=== PATIENT | female | born 1950 | race Caucasian/White ===

== ENCOUNTER 2016-03-08 08:41 | Emergency (ER) | payer OTHER ==
[~2016-03-08] VITALS: Ht 152.4 cm; Wt 107.1 kg
[~2016-03-08 08:41] MED LIST: ASPIRIN325 MG PO; BACITRACIN3.5 GM BOTH EYES; BENADRYL25 MG PO; CATAPRES0.2 MG PO; CENTRUM SILVER1 EAC4 PO; COMBIVENT RESPIM4 GM IH; CRESTOR20 MG PO; CYMBALTA60 MG PO; Catapres PO; Cymbalta PO; DILAUDID2 MG PO; Dilaudid PO; ELIQUIS5 MG PO; FLEXERIL10 MG PO; FLONASE16 G1 BOTH NARES; FORTAMET1000 M1 PO; FOSAMAX70 MG PO; KLOR-CON M1010 MEQ PO; LASIX40 MG PO; LISINOPRIL10 MG PO; LYRICA200 MG PO; Lasix PO; MATZIM LA360 MG PO; MATZIM PO; MELATONIN10 M2 PO; METFORMIN HCL1000 MG PO; MIRAPEX0.25 MG PO; MOBIC7.5 MG PO; Micro-K,K-Tab,K-Dur, PO; Mirapex PO; NORVASC10 MG PO; NYSTOP60 GM TP; Norvasc PO; PRAVASTATIN SOD80 MG PO; PRILOSEC20 MG PO; PROAIR HFA8.5 GM IH; Pravachol PO; PriLOSEC PO; SINGULAIR10 MG PO; Singulair PO; XANAX0.5 MG PO
[2016-03-08 11:24] VITALS: BP 139/84
== END 2016-03-08 11:25 | disposition home or self-care (01) ==
LOC: EME → EDBD 08:41 → EME 11:25
DX: R06.02 Shortness of breath (principal); S81.801D Unspecified open wound, right lower leg, subsequent encounter; X58.XXXD Exposure to other specified factors, subsequent encounter; I10 Essential (primary) hypertension; E78.5 Hyperlipidemia, unspecified; E11.9 Type 2 diabetes mellitus without complications; J45.909 Unspecified asthma, uncomplicated; G89.29 Other chronic pain; Z79.891 Long term (current) use of opiate analgesic
CPT/HCPCS: 71010; 99281; 99284

== ENCOUNTER 2016-04-27 13:09 | Inpatient (IN) | payer OTHER ==
[~2016-04-27] VITALS: Ht 152.4 cm; Wt 104.0 kg
[2016-04-27 13:17] LABS: BASE EXCESS 7.9 mEq/L (-3 to +3); BICARBONATE 34.8 mEq/L (22-26); CARBOXY HGB 4.3 % (0-5); METHEMOGLOBIN 0.2 % (0-1.5); PCO2 66 mm Hg (35-45); PO2 129 mm Hg (80-100); pH 7.33 (7.35-7.45)
[2016-04-27 13:18] LABS: COMMENTS - BLOOD GASES NEG A+C+; DEVICE NRBR; FI02 100 %; O2 FLOW 15 L/MIN; SITE LR; TOTAL RESP RATE 10 resp/min
[2016-04-27 13:46] LABS: CHLORIDE 107 mEq/L (99-109); POTASSIUM 4.1 mEq/L (3.7-5.4); SODIUM 145 mEq/L (136-147)
[2016-04-27 13:48] LABS: GLUCOSE 129 mg/dL (70-99)
[2016-04-27 13:49] LABS: ANION GAP 10 MEQ/L (2-14); INTER. NORMALIZED RATIO 1.2
[2016-04-27 13:52] LABS: GFR ESTIMATE (CALCULATED) 53 mL/min/; UREA NITROGEN (BUN) 24 mg/dL (9-23)
[2016-04-27 13:57] LABS: TROP-I INTERPRETATION NEGATIVE; TROPONIN-I 0.02 ng/mL (0.0-0.30)
[2016-04-27 14:21] LABS: HEMATOCRIT 28.4 % (36.0-46.0); MCH 18.8 PG (29.0-34.0); MCHC 26.4 G/DL (30.0-36.0); MCV 71.4 FL (83-99); RBC DIS.WIDTH-CV 21.8 % (11.8-14.6); RBC DIS.WIDTH-SD 52.9 % (39-53); RED BLOOD COUNT 3.98 M/uL (3.80-5.20); WHITE BLOOD COUNT 15.2 K/uL (4.1-10.2)
[2016-04-27 15:40] LABS: BASOPHIL COUNT 0.1 K/uL (0-0.1); EOSINOPHIL (%) 0.2 % (0-5); HEMATOLOGY COMMENT 1 SMEAR COMPATIBLE; IMMATURE GRANULOCYTE (%) 0.8 % (0.0-0.7); IMMATURE GRANULOCYTE COUNT 1.2 K/uL; LYMPHOCYTE COUNT 0.9 K/uL (1.0-2.8); MEAN PLAT.VOLUME 11.2 uM^3 (9.5-12.4); MONOCYTE (%) 5.5 % (3-12); MONOCYTE COUNT 0.8 K/uL (0-0.8); NEUTROPHIL (%) 86.9 % (45-76); NEUTROPHIL COUNT 13.2 K/uL (1.8-6.4); PLAT.SUFFICIENCY INCREASED; PLATELET COUNT 385 K/uL (156-360); USER ID SS
[2016-04-27 15:44] LABS: BASE EXCESS 5.4 mEq/L (-3 to +3); BICARBONATE 31.8 mEq/L (22-26); CARBOXY HGB 2.6 % (0-5); METHEMOGLOBIN 0 % (0-1.5); PO2 112 mm Hg (80-100); pH 7.34 (7.35-7.45)
[2016-04-27 15:46] LABS: COMMENTS - BLOOD GASES NEG A+C+; PCO2 59 mm Hg (35-45); SITE LR
[2016-04-27 15:47] LABS: DEVICE VENT; FI02 100 %; MECHANICAL RATE 16 resp/min; MODE AC; O2 FLOW 50 L/MIN; PEEP 8 CM/H20; TIDAL VOLUME 450 ML; TOTAL RESP RATE 20 resp/min
[2016-04-27] MEDS ORDERED: LISINOPRIL30 MG PO (16:31)
[2016-04-27] MEDS ORDERED: OMEPRAZOLE40 M1 PO (16:34)
[2016-04-27] MEDS ORDERED: K-DUR20 MEQ PO ×3 (16:41→16:42)
[2016-04-27] MEDS ORDERED: FISH OIL 1,0001 EAC7 PO (16:43)
[2016-04-27 20:15] VITALS: BP 152/76
[2016-04-27 20:16] VITALS: BP 152/76
[2016-04-27 21:00] VITALS: BP 131/58
[2016-04-27 21:47] LABS: METH RESISTANT S AUREUS PCR NEGATIVE (NEGATIVE)
[2016-04-27 21:58] LABS: CHLORIDE 108 mEq/L (99-109); POTASSIUM 3.9 mEq/L (3.7-5.4); SODIUM 147 mEq/L (136-147)
[2016-04-27 21:59] LABS: PROBE CHECK PASS; SPECIMEN PROCESSING CONTROL PASS
[2016-04-27 22:00] VITALS: BP 123/78
[2016-04-27 22:00] LABS: GLUCOSE 173 mg/dL (70-99)
[2016-04-27 22:02] LABS: ANION GAP 12 MEQ/L (2-14); TOTAL BILIRUBIN 0.2 mg/dL (0.0-1.0)
[2016-04-27 22:04] LABS: ALKALINE PHOSPHATASE 81 IU/L (3-129); GFR ESTIMATE (CALCULATED) 43 mL/min/
[2016-04-27 22:05] LABS: UREA NITROGEN (BUN) 25 mg/dL (9-23)
[2016-04-27 22:23] LABS: ADD MIUA? YES; BILIRUBIN NEGATIVE; BLOOD SMALL; COLOR YELLOW ((YELLOW)); GLUCOSE (STRIP) NEGATIVE; KETONES NEGATIVE; LEUKOCYTES SMALL; NITRITE NEGATIVE; PROTEIN (STRIP) 30; SPECIFIC GRAVITY 1.014 (1.000-1.030); UROBILINOGEN 0.2 MG/DL (0.2-1.0)
[2016-04-27 22:30] LABS: AMPHETAMINES QUANT VALUE 0 NG/ML; BARBITUATES QUANT VALUE 0 NG/ML; BENZODIAZEPINES, URINE SCREEN POSITIVE (200 ng/mL); MARIJUANA QUANT VALUE 0 NG/ML; PHENCYCLIDINE QUANT VALUE 0 NG/ML
[2016-04-27 23:00] VITALS: BP 122/69
[2016-04-27 23:03] LABS: BACTERIA RARE /HPF; EPITHELIAL CELLS NONE SEEN /HPF; MUCUS 1+ /LPF; UCUL ADDED? NO
[2016-04-28] VITALS (30 sets, daily range): BP systolic 60–170; BP diastolic 38–108
[2016-04-28 00:59] LABS: HEMATOCRIT 26.1 % (36.0-46.0); MCH 18.8 PG (29.0-34.0); MCHC 26.4 G/DL (30.0-36.0); MCV 71.1 FL (83-99); RBC DIS.WIDTH-CV 21.3 % (11.8-14.6); RBC DIS.WIDTH-SD 51.8 % (39-53); RED BLOOD COUNT 3.67 M/uL (3.80-5.20); WHITE BLOOD COUNT 17.8 K/uL (4.1-10.2)
[2016-04-28 01:28] LABS: MEAN PLAT.VOLUME 11.6 uM^3 (9.5-12.4); PLATELET COUNT 274 K/uL (156-360)
[2016-04-28 04:26] LABS: LACTATE DEHYDROGENASE 384 IU/L (20-246)
[2016-04-28 06:08] LABS: ALKALINE PHOSPHATASE 66 IU/L (3-129); ANION GAP 9 MEQ/L (2-14); CHLORIDE 108 MEQ/L (99-109); GFR ESTIMATE (CALCULATED) 53 mL/min/; GLUCOSE 135 mg/dL (70-99); POTASSIUM 3.8 MEQ/L (3.7-5.4); SAMPLE HEMOLYSIS CHECK 0; SAMPLE ICTERIC CHECK 0; SAMPLE LIPEMIA CHECK 0; SODIUM 146 MEQ/L (136-147); TOTAL BILIRUBIN 0.5 MG/DL (0.0-1.0); UREA NITROGEN (BUN) 23 mg/dL (9-23)
[2016-04-28 06:27] LABS: INTER. NORMALIZED RATIO 1.1; PROTHROMBIN TIME 11.4 (9.2-11.2); PTT 23.3 (25-32)
[2016-04-28 06:35] LABS: POINT-OF-CARE METER ID UU14174217
[2016-04-28 07:25] LABS: INTERNAL CONTROL VALID? YES
[2016-04-28 09:03] LABS: HEMATOCRIT 29.7 % (36.0-46.0); MCH 19.8 PG (29.0-34.0); MCHC 27.3 G/DL (30.0-36.0); MCV 72.4 FL (83-99); RBC DIS.WIDTH-CV 20.7 % (11.8-14.6); WHITE BLOOD COUNT 18.3 K/uL (4.1-10.2)
[2016-04-28 09:16] LABS: PLATELET COUNT 265 K/uL (156-360)
[2016-04-28 10:08] LABS: POINT-OF-CARE METER ID UU13113748
[2016-04-28 12:12] LABS: HEMATOCRIT 28.2 % (36.0-46.0); MCV 72.3 FL (83-99)
[2016-04-28 12:43] LABS: IRON 17 MCG/DL (35-150)
[2016-04-28 12:55] LABS: FERRITIN 16 NG/ML (10-291)
[2016-04-28 15:23] LABS: BASE EXCESS 9.2 mEq/L (-3 to +3); BICARBONATE 33.5 mEq/L (22-26); CARBOXY HGB 1.8 % (0-5); METHEMOGLOBIN 0.6 % (0-1.5)
[2016-04-28 15:24] LABS: COMMENTS - BLOOD GASES A+C+; CONTINUOUS POS AIRWAY PRESSURE 8 cm H2O; DEVICE 980; FI02 30 %; MODE NIPPV; PCO2 44 mm Hg (35-45); PO2 71 mm Hg (80-100); PRES. SUPPORT 15 CM/H2O; SITE LR; TOTAL RESP RATE 22 resp/min; pH 7.49 (7.35-7.45)
[2016-04-28 15:41] LABS: POINT-OF-CARE METER ID UU13113748
[2016-04-28 18:06] LABS: POINT-OF-CARE METER ID UU14174217
[2016-04-28 23:07] LABS: POINT-OF-CARE METER ID UU13113748
[2016-04-29] VITALS (21 sets, daily range): BP systolic 134–187; BP diastolic 68–123
[2016-04-29 06:23] LABS: POINT-OF-CARE METER ID UU14174217
[2016-04-29 07:06] LABS: EOSINOPHIL (%) 0 % (0-5); HEMATOCRIT 31.3 % (36.0-46.0); IMMATURE GRANULOCYTE (%) 1.9 % (0.0-0.7); IMMATURE GRANULOCYTE COUNT 0.2 K/uL; INSTRUMENT ABS NEUTROPHIL CT 11.7 K/uL; LYMPHOCYTE COUNT 0.2 K/uL (1.0-2.8); MCH 20.1 PG (29.0-34.0); MCHC 27.2 G/DL (30.0-36.0); MCV 74.2 FL (83-99); MEAN PLAT.VOLUME 11.1 uM^3 (9.5-12.4); MONOCYTE (%) 2.3 % (3-12); MONOCYTE COUNT 0.3 K/uL (0-0.8); NEUTROPHIL (%) 93.8 % (45-76); NEUTROPHIL COUNT 11.7 K/uL (1.8-6.4); NRBC (%) 0.3 /100 WBC (0-0); PLATELET COUNT 240 K/uL (156-360); RBC DIS.WIDTH-CV 21.3 % (11.8-14.6); RED BLOOD COUNT 4.22 M/uL (3.80-5.20)
[2016-04-29 07:11] LABS: WHITE BLOOD COUNT 12.5 K/uL (4.1-10.2)
[2016-04-29 07:33] LABS: ANION GAP 11 MEQ/L (2-14); CHLORIDE 108 MEQ/L (99-109); GFR ESTIMATE (CALCULATED) 59 mL/min/; GLUCOSE 124 mg/dL (70-99); MAGNESIUM 2.4 mg/dl (1.3-2.7); SAMPLE HEMOLYSIS CHECK 0; SAMPLE ICTERIC CHECK 0; SAMPLE LIPEMIA CHECK 0; SODIUM 151 MEQ/L (136-147); UREA NITROGEN (BUN) 25 mg/dL (9-23)
[2016-04-29 10:55] LABS: POINT-OF-CARE METER ID UU13113731
[2016-04-29 11:14] LABS: ABS NEUTROPHIL COUNT 12.2; BAND NEUTROPHILS 1.7 % (0-8.0); EOSINOPHIL ABS CT 0; METAMYELOCYTES 0.9 %; SEG.NEUTROPHILS 95.7 % (46.0-76.0); SMUDGE CELLS 1.7
[2016-04-29 11:49] LABS: PLAT.SUFFICIENCY ADEQUATE
[2016-04-29 17:50] LABS: POINT-OF-CARE METER ID UU14174217
[2016-04-30] VITALS (13 sets, daily range): BP systolic 147–199; BP diastolic 72–112
[2016-04-30 17:01] LABS: POINT-OF-CARE METER ID UU14162508
[2016-04-30 22:41] LABS: POINT-OF-CARE METER ID UU14162508
[2016-05-01 04:48] VITALS: BP 179/88
[2016-05-01 06:26] LABS: POINT-OF-CARE METER ID UU14162508
[2016-05-01 07:41] LABS: HEMATOCRIT 34.6 % (36.0-46.0); MCH 20.4 PG (29.0-34.0); MCHC 26.9 G/DL (30.0-36.0); MEAN PLAT.VOLUME 11.5 uM^3 (9.5-12.4); NRBC (%) 0.6 /100 WBC (0-0); PLATELET COUNT 303 K/uL (156-360); RBC DIS.WIDTH-SD 58.4 % (39-53); RED BLOOD COUNT 4.55 M/uL (3.80-5.20); WHITE BLOOD COUNT 16.2 K/uL (4.1-10.2)
[2016-05-01 07:43] LABS: HEMATOCRIT 34.3 % (36.0-46.0); MCH 19.9 PG (29.0-34.0); MCHC 26.2 G/DL (30.0-36.0); MCV 75.9 FL (83-99); NRBC (%) 0.4 /100 WBC (0-0); RBC DIS.WIDTH-CV 22.2 % (11.8-14.6); RBC DIS.WIDTH-SD 58.6 % (39-53); RED BLOOD COUNT 4.52 M/uL (3.80-5.20); WHITE BLOOD COUNT 15.9 K/uL (4.1-10.2)
[2016-05-01 07:55] VITALS: BP 162/78
[2016-05-01 07:58] LABS: ANION GAP 9 MEQ/L (2-14); CHLORIDE 105 MEQ/L (99-109); GFR ESTIMATE (CALCULATED) > 59 mL/min/; GLUCOSE 139 mg/dL (70-99); MAGNESIUM 2.4 mg/dl (1.3-2.7); POTASSIUM 2.9 MEQ/L (3.7-5.4); SAMPLE HEMOLYSIS CHECK 0; SAMPLE ICTERIC CHECK 0; SAMPLE LIPEMIA CHECK 0; SODIUM 149 MEQ/L (136-147); UREA NITROGEN (BUN) 30 mg/dL (9-23)
[2016-05-01 10:13] LABS: ABS NEUTROPHIL COUNT 15.3; ANISOCYTOSIS 2+; BAND NEUTROPHILS 2.6 % (0-8.0); EOSINOPHIL ABS CT 0; HYPOCHROMASIA 2+; MEAN PLAT.VOLUME 11.5 uM^3 (9.5-12.4); MICROCYTOSIS 2+; OVALOCYTES 1+; PLAT.SUFFICIENCY ADEQUATE; PLATELET COUNT 295 K/uL (156-360); POIKILOCYTOSIS 2+; POLYCHROMASIA 1+; SEG.NEUTROPHILS 93.9 % (46.0-76.0)
[2016-05-01 11:40] VITALS: BP 177/96
[2016-05-01 11:53] LABS: POINT-OF-CARE METER ID UU14162508
[2016-05-01 15:10] VITALS: BP 154/94
[2016-05-01 16:53] LABS: POINT-OF-CARE METER ID UU14162508
[2016-05-01 21:43] LABS: POINT-OF-CARE METER ID UU14162508
[2016-05-01 23:08] VITALS: BP 156/58
[2016-05-02 03:24] VITALS: BP 148/56
[2016-05-02 07:18] LABS: HEMATOCRIT 35.4 % (36.0-46.0); MCH 20.5 PG (29.0-34.0); MCHC 26.8 G/DL (30.0-36.0); MCV 76.3 FL (83-99); NRBC (%) 0.3 /100 WBC (0-0); RBC DIS.WIDTH-CV 22.8 % (11.8-14.6); RBC DIS.WIDTH-SD 59.7 % (39-53); RED BLOOD COUNT 4.64 M/uL (3.80-5.20); WHITE BLOOD COUNT 17.5 K/uL (4.1-10.2)
[2016-05-02 07:40] VITALS: BP 194/102
[2016-05-02 08:22] LABS: ANION GAP 8 MEQ/L (2-14); CHLORIDE 104 MEQ/L (99-109); GFR ESTIMATE (CALCULATED) > 59 mL/min/; GLUCOSE 162 mg/dL (70-99); MAGNESIUM 2.4 mg/dl (1.3-2.7); SAMPLE HEMOLYSIS CHECK 1; SAMPLE ICTERIC CHECK 0; SAMPLE LIPEMIA CHECK 0; SODIUM 146 MEQ/L (136-147); UREA NITROGEN (BUN) 29 mg/dL (9-23)
[2016-05-02 08:28] LABS: POTASSIUM 4.1 MEQ/L (3.7-5.4)
[2016-05-02 09:40] VITALS: BP 194/112
[2016-05-02 11:01] LABS: EOSINOPHIL ABS CT 0; INSTRUMENT ABS NEUTROPHIL CT 15.4 K/uL; MACROCYTES 1+; MEAN PLAT.VOLUME 11.2 uM^3 (9.5-12.4); OVALOCYTES 1+; PLAT.SUFFICIENCY ADEQUATE; PLATELET COUNT 273 K/uL (156-360)
[2016-05-02 11:45] VITALS: BP 188/112
[2016-05-02 11:55] LABS: POINT-OF-CARE METER ID UU14162508
[2016-05-02 12:05] LABS: D-DIMER ELISA 0.73 mg/L FEU (< 0.57)
[2016-05-02 13:26] LABS: ANTI-NUCLEAR AB SCRN/RFLX(ANA) NONREACTIVE (NONREACTIVE); SCL-70 (SCLERODERMA) ANTIBODY 17 U/mL (0-99)
[2016-05-02 15:45] VITALS: BP 152/88
[2016-05-02 20:00] VITALS: BP 140/100
[2016-05-02 21:24] LABS: POINT-OF-CARE METER ID UU14162508
[2016-05-03] VITALS (7 sets, daily range): BP systolic 128–188; BP diastolic 63–108
[2016-05-03 06:53] LABS: POINT-OF-CARE METER ID UU14162508
[2016-05-03 09:20] LABS: ALKALINE PHOSPHATASE 82 IU/L (3-129); ANION GAP 8 MEQ/L (2-14); CHLORIDE 96 MEQ/L (99-109); GFR ESTIMATE (CALCULATED) > 59 mL/min/; GLUCOSE 160 mg/dL (70-99); MAGNESIUM 2.3 mg/dl (1.3-2.7); SAMPLE HEMOLYSIS CHECK 2; SAMPLE ICTERIC CHECK 0; SAMPLE LIPEMIA CHECK 0; SODIUM 141 MEQ/L (136-147); TOTAL BILIRUBIN 0.6 MG/DL (0.0-1.0); UREA NITROGEN (BUN) 30 mg/dL (9-23)
[2016-05-03 09:24] LABS: POTASSIUM 4.1 MEQ/L (3.7-5.4)
[2016-05-03 09:28] LABS: MCH 20.2 PG (29.0-34.0); MCHC 26.8 G/DL (30.0-36.0); MCV 75.4 FL (83-99); NRBC (%) 0.3 /100 WBC (0-0); RBC DIS.WIDTH-SD 56.8 % (39-53); RED BLOOD COUNT 5.04 M/uL (3.80-5.20); WHITE BLOOD COUNT 17.1 K/uL (4.1-10.2)
[2016-05-03 10:26] LABS: ABS NEUTROPHIL COUNT 16.3; ANISOCYTOSIS 2+; BAND NEUTROPHILS 1.7 % (0-8.0); EOSINOPHIL ABS CT 0; HYPOCHROMASIA 1+; INSTRUMENT ABS NEUTROPHIL CT 15.3 K/uL; LYMPHOCYTES 1.8 % (15.0-45.0); MACROCYTES 1+; MEAN PLAT.VOLUME 11.6 uM^3 (9.5-12.4); MICROCYTOSIS 3+; MYELOCYTES 1.7 %; OVALOCYTES 1+; PLAT.SUFFICIENCY ADEQUATE; PLATELET COUNT 354 K/uL (156-360); POIKILOCYTOSIS 1+; POLYCHROMASIA 1+; SEG.NEUTROPHILS 93.9 % (46.0-76.0); SMUDGE CELLS 0.9
[2016-05-03 11:53] LABS: POINT-OF-CARE METER ID UU14162508
[2016-05-03 13:12] LABS: INTACT PARATHYROID HORMONE 218 pg/mL (10-69)
[2016-05-03 16:15] LABS: POINT-OF-CARE METER ID UU14162508
[2016-05-04 03:43] VITALS: BP 151/102
[2016-05-04 08:29] LABS: BASOPHIL COUNT 0.1 K/uL (0-0.1); EOSINOPHIL (%) 0.1 % (0-5); HEMATOCRIT 39.7 % (36.0-46.0); IMMATURE GRANULOCYTE (%) 4.3 % (0.0-0.7); IMMATURE GRANULOCYTE COUNT 0.9 K/uL; INSTRUMENT ABS NEUTROPHIL CT 18.1 K/uL; LYMPHOCYTE COUNT 0.9 K/uL (1.0-2.8); MCH 20.7 PG (29.0-34.0); MCHC 27.7 G/DL (30.0-36.0); MCV 74.6 FL (83-99); MONOCYTE (%) 5.1 % (3-12); MONOCYTE COUNT 1.1 K/uL (0-0.8); NEUTROPHIL COUNT 18.1 K/uL (1.8-6.4); NRBC (%) 0.2 /100 WBC (0-0); RBC DIS.WIDTH-CV 23.5 % (11.8-14.6); RBC DIS.WIDTH-SD 56.8 % (39-53); RED BLOOD COUNT 5.32 M/uL (3.80-5.20)
[2016-05-04 08:41] VITALS: BP 174/90
[2016-05-04 08:47] LABS: ALKALINE PHOSPHATASE 83 IU/L (3-129); ANION GAP 10 MEQ/L (2-14); CHLORIDE 97 MEQ/L (99-109); GFR ESTIMATE (CALCULATED) > 59 mL/min/; MAGNESIUM 2.3 mg/dl (1.3-2.7); POTASSIUM 3.3 MEQ/L (3.7-5.4); SAMPLE HEMOLYSIS CHECK 0; SAMPLE ICTERIC CHECK 0; SAMPLE LIPEMIA CHECK 0; SODIUM 144 MEQ/L (136-147); TOTAL BILIRUBIN 0.5 MG/DL (0.0-1.0); UREA NITROGEN (BUN) 30 mg/dL (9-23)
[2016-05-04 08:50] LABS: GLUCOSE 91 mg/dL (70-99)
[2016-05-04 11:54] VITALS: BP 131/83
[2016-05-04 12:32] LABS: PLATELET CLUMPS PRESENT - PLATELET COUNT APPEARS ADQ.; PLATELET COUNT UNABLE TO REPORT K/uL (156-360)
[2016-05-04] MEDS ORDERED: LOPRESSOR25 MG PO (13:17)
[2016-05-04] MEDS ORDERED: HYDROCHLOROTHIA25 MG PO (13:17)
[2016-05-04] MEDS ORDERED: LISINOPRIL40 MG PO (13:17)
[2016-05-04] MEDS ORDERED: ADVAIR HFA120 INHALA IH (13:17)
[2016-05-04] MEDS ORDERED: LEVOFLOXACIN750 MG PO (13:17)
[2016-05-04] MEDS ORDERED: SPIRIVA RESPIMAT4 GM IH (13:17)
[2016-05-04 15:43] VITALS: BP 122/59
[2016-05-04 21:48] LABS: Neutrophil Cytoplasmic Aby Negative (Negative)
== END 2016-05-04 17:47 | disposition home health service (06) | DRG 208 ==
LOC: EME 13:09 → EDBD 13:09 → EME 13:09 → EDOF 16:07 → 4WEST 16:07 → EDOF 16:07 → 4WEST 19:55 → 2EAST 04-30 14:56
PROVIDERS: Emergency Medicine; Hospitalist; Internal Medicine; Internal Medicine Nephrology; Internal Medicine Pulmonary Disease; Obstetrics & Gynecology
DX: J96.21 Acute and chronic respiratory failure with hypoxia (principal); J18.9 Pneumonia, unspecified organism; J90 Pleural effusion, not elsewhere classified; E87.2 Acidosis; E87.0 Hyperosmolality and hypernatremia; I11.0 Hypertensive heart disease with heart failure; E11.43 Type 2 diabetes mellitus with diabetic autonomic (poly)neuropathy; I50.9 Heart failure, unspecified; I27.2 Other secondary pulmonary hypertension; I48.91 Unspecified atrial fibrillation; E87.6 Hypokalemia; E83.52 Hypercalcemia; J44.0 Chronic obstructive pulmonary disease with (acute) lower respiratory infection; J44.1 Chronic obstructive pulmonary disease with (acute) exacerbation; E78.5 Hyperlipidemia, unspecified; L97.811 Non-pressure chronic ulcer of other part of right lower leg limited to breakdown of skin; N93.9 Abnormal uterine and vaginal bleeding, unspecified; J45.909 Unspecified asthma, uncomplicated; Z79.01 Long term (current) use of anticoagulants; F17.210 Nicotine dependence, cigarettes, uncomplicated; E66.2 Morbid (severe) obesity with alveolar hypoventilation; D64.9 Anemia, unspecified; Z90.710 Acquired absence of both cervix and uterus; S81.801A Unspecified open wound, right lower leg, initial encounter; X58.XXXA Exposure to other specified factors, initial encounter; L30.4 Erythema intertrigo; Z85.820 Personal history of malignant melanoma of skin; K21.9 Gastro-esophageal reflux disease without esophagitis; M81.0 Age-related osteoporosis without current pathological fracture; Z68.41 Body mass index [BMI] 40.0-44.9, adult; R41.82 Altered mental status, unspecified; E87.70 Fluid overload, unspecified
CPT/HCPCS: 36600; 70450; 71010; 71275; 80048; 80053; 80202; 80306 90; 81003; 82607; 82728; 82746; 82803; 82948; 83540; 83605; 83615; 83735; 83880; 83970; 84100; 84466; 84484; 85014; 85018; 85025; 85027; 85379; 85610; 85730; 86021 90; 86038; 86235; 86430; 86850; 86900; 86901; 86920; 87040; 87070; 87205; 87449; 87641; 93005; 93306; 94002; 94003; 94640; 94640 76; 94644; 94660; 94760; 94799; 99202; 99281; 99285; J0456; J0692; J0696; J1756; J1815; J1940; J2704; J2920; J2930; J3370; J3480; J7050; J7070; P9016; S0028

== ENCOUNTER 2016-06-21 11:49 | Inpatient (IN) | payer OTHER ==
[~2016-06-21] VITALS: Ht 152.4 cm; Wt 109.0 kg
[~2016-06-21 11:49] MED LIST changes: +ADVAIR HFA120 INHALA IH; +FISH OIL 1,0001 EAC7 PO; +HYDROCHLOROTHIA25 MG PO; +K-DUR20 MEQ PO; +LEVOFLOXACIN750 MG PO; +LISINOPRIL30 MG PO; +LISINOPRIL40 MG PO; +LOPRESSOR25 MG PO; +OMEPRAZOLE40 M1 PO; +SPIRIVA RESPIMAT4 GM IH
[2016-06-21 13:59] LABS: MCH 21.4 PG (29.0-34.0); MCHC 27.2 G/DL (30.0-36.0); MCV 78.8 FL (83-99); MEAN PLAT.VOLUME 11.1 uM^3 (9.5-12.4); PLATELET COUNT 326 K/uL (156-360); RBC DIS.WIDTH-CV 23.5 % (11.8-14.6); RBC DIS.WIDTH-SD 66.3 % (39-53); RED BLOOD COUNT 4.06 M/uL (3.80-5.20); WHITE BLOOD COUNT 13.8 K/uL (4.1-10.2)
[2016-06-21 14:09] LABS: CHLORIDE 106 mEq/L (99-109); POTASSIUM 3.8 mEq/L (3.7-5.4); SODIUM 150 mEq/L (136-147)
[2016-06-21 14:11] LABS: GLUCOSE 115 mg/dL (70-99)
[2016-06-21 14:12] LABS: ANION GAP 12 MEQ/L (2-14)
[2016-06-21 14:13] LABS: TOTAL BILIRUBIN 0.3 mg/dL (0.0-1.0)
[2016-06-21 14:14] LABS: ALKALINE PHOSPHATASE 102 IU/L (3-129); GFR ESTIMATE (CALCULATED) 32 mL/min/
[2016-06-21 14:16] LABS: UREA NITROGEN (BUN) 47 mg/dL (9-23)
[2016-06-21 14:21] LABS: BICARBONATE 39.3 mEq/L (22-26); CARBOXY HGB 5.2 % (0-5); COMMENTS - BLOOD GASES A+C+; DEVICE NC; METHEMOGLOBIN 0.7 % (0-1.5); O2 FLOW 2 L/MIN; PCO2 62 mm Hg (35-45); PO2 69 mm Hg (80-100); SITE LR; pH 7.41 (7.35-7.45)
[2016-06-21 14:22] LABS: TOTAL RESP RATE 14 resp/min
[2016-06-21 14:53] LABS: TROP-I INTERPRETATION NEGATIVE; TROPONIN-I 0.02 ng/mL (0.0-0.30)
[2016-06-21] MEDS ORDERED: HYDROCHLOROTHIA25 MG PO (15:40)
[2016-06-21 21:48] VITALS: BP 134/67
[2016-06-22 00:09] VITALS: BP 159/90
[2016-06-22 04:14] VITALS: BP 159/77
[2016-06-22 06:02] LABS: ADD MIUA? NO; BILIRUBIN NEGATIVE; BLOOD NEGATIVE; COLOR YELLOW ((YELLOW)); GLUCOSE (STRIP) NEGATIVE; KETONES NEGATIVE; LEUKOCYTES NEGATIVE; NITRITE NEGATIVE; PROTEIN (STRIP) NEGATIVE; SPECIFIC GRAVITY 1.013 (1.000-1.030); UCUL ADDED? NO; UROBILINOGEN 0.2 MG/DL (0.2-1.0)
[2016-06-22 07:46] VITALS: BP 136/86
[2016-06-22 09:25] LABS: ANION GAP 9 MEQ/L (2-14); CHLORIDE 104 MEQ/L (99-109); GFR ESTIMATE (CALCULATED) 43 mL/min/; GLUCOSE 96 mg/dL (70-99); POTASSIUM 3.7 MEQ/L (3.7-5.4); SAMPLE HEMOLYSIS CHECK 0; SAMPLE ICTERIC CHECK 0; SAMPLE LIPEMIA CHECK 0; SODIUM 147 MEQ/L (136-147); UREA NITROGEN (BUN) 32 mg/dL (9-23)
[2016-06-22 09:36] LABS: HEMATOCRIT 30.4 % (36.0-46.0); MCH 21.1 PG (29.0-34.0); MCHC 26.6 G/DL (30.0-36.0); MCV 79.4 FL (83-99); MEAN PLAT.VOLUME 11.5 uM^3 (9.5-12.4); NRBC (%) 0.2 /100 WBC (0-0); PLATELET COUNT 287 K/uL (156-360); RBC DIS.WIDTH-CV 22.7 % (11.8-14.6); RBC DIS.WIDTH-SD 65.1 % (39-53); RED BLOOD COUNT 3.83 M/uL (3.80-5.20); WHITE BLOOD COUNT 11.8 K/uL (4.1-10.2)
[2016-06-22 11:35] VITALS: BP 146/79
[2016-06-22 15:42] VITALS: BP 176/84
[2016-06-22 20:20] VITALS: BP 147/81
[2016-06-23 01:10] VITALS: BP 151/97
[2016-06-23 04:19] VITALS: BP 153/73
[2016-06-23 08:09] VITALS: BP 157/98
[2016-06-23 11:34] VITALS: BP 137/83
[2016-06-23 12:14] LABS: POINT-OF-CARE METER ID UU14188625
[2016-06-23 14:58] VITALS: BP 137/83
[2016-06-23 20:00] VITALS: BP 151/91
[2016-06-23 21:04] LABS: POINT-OF-CARE METER ID UU14174225
[2016-06-24] VITALS: BP 153/81
[2016-06-24 04:00] VITALS: BP 123/69
[2016-06-24 08:02] VITALS: BP 185/70
[2016-06-24 08:37] LABS: POINT-OF-CARE METER ID UU14174225
[2016-06-24] MEDS ORDERED: DILAUDID2 MG PO (11:20)
[2016-06-24] MEDS ORDERED: BACTRIM,SEPT1 TABLET PO (11:20)
[2016-06-24 11:49] VITALS: BP 151/83
[2016-06-24 11:52] LABS: POINT-OF-CARE METER ID UU14174225
== END 2016-06-24 12:43 | disposition home or self-care (01) | DRG 571 ==
LOC: EME 11:49 → 5SOUTH 15:42 → EDOF 15:42 → 5SOUTH 17:18
PROVIDERS: Emergency Medicine; Internal Medicine; Nurse Practitioner Family
PROC: 0HBKXZZ Excision of Right Lower Leg Skin, External Approach (ICD-10-PCS; principal; 2016-06-22)
DX: L03.116 Cellulitis of left lower limb (principal); L03.115 Cellulitis of right lower limb; N17.9 Acute kidney failure, unspecified; E87.0 Hyperosmolality and hypernatremia; J96.11 Chronic respiratory failure with hypoxia; E66.01 Morbid (severe) obesity due to excess calories; Z68.42 Body mass index [BMI] 45.0-49.9, adult; E11.42 Type 2 diabetes mellitus with diabetic polyneuropathy; L97.811 Non-pressure chronic ulcer of other part of right lower leg limited to breakdown of skin; I50.32 Chronic diastolic (congestive) heart failure; I11.0 Hypertensive heart disease with heart failure; L97.821 Non-pressure chronic ulcer of other part of left lower leg limited to breakdown of skin; J44.9 Chronic obstructive pulmonary disease, unspecified; Z99.81 Dependence on supplemental oxygen; I48.2 Chronic atrial fibrillation; Z79.01 Long term (current) use of anticoagulants; F17.200 Nicotine dependence, unspecified, uncomplicated; D50.0 Iron deficiency anemia secondary to blood loss (chronic); E78.5 Hyperlipidemia, unspecified
CPT/HCPCS: 36600; 71020; 73590; 80048; 80053; 81003; 82803; 82948; 83880; 84484; 85027; 87040; 87070; 87075; 87205; 93005; 93970; 94640; 94640 76; 94760; 94799; 99202; 99281; 99285; A6212; J0295; J1815; J3370; J3480; J7050

== ENCOUNTER 2016-10-23 22:39 | Inpatient (IN) | payer OTHER ==
[~2016-10-23] VITALS: Ht 154.9 cm; Wt 103.3 kg
[~2016-10-23 22:39] MED LIST changes: +BACTRIM,SEPT1 TABLET PO; +MIRAPEX0.125 MG PO; -MIRAPEX0.25 MG PO
[2016-10-23 23:53] LABS: EOSINOPHIL (%) 1.3 % (0-5); EOSINOPHIL COUNT 0.2 K/uL (0-0.3); IMMATURE GRANULOCYTE (%) 1.1 % (0.0-0.7); IMMATURE GRANULOCYTE COUNT 0.2 K/uL; LYMPHOCYTE COUNT 0.9 K/uL (1.0-2.8); MCH 17.7 PG (29.0-34.0); MCHC 25.6 G/DL (30.0-36.0); MCV 69.3 FL (83-99); MEAN PLAT.VOLUME 10.3 uM^3 (9.5-12.4); MONOCYTE (%) 6.1 % (3-12); MONOCYTE COUNT 0.9 K/uL (0-0.8); NEUTROPHIL (%) 85.4 % (45-76); NRBC (%) 0.4 /100 WBC (0-0); PLATELET COUNT 272 K/uL (156-360); RBC DIS.WIDTH-CV 23.9 % (11.8-14.6); RBC DIS.WIDTH-SD 56.6 % (39-53); RED BLOOD COUNT 3.61 M/uL (3.80-5.20); WHITE BLOOD COUNT 15.2 K/uL (4.1-10.2)
[2016-10-23 23:54] LABS: CHLORIDE 103 mEq/L (99-109); POTASSIUM 3.8 mEq/L (3.7-5.4); SODIUM 147 mEq/L (136-147)
[2016-10-23 23:56] LABS: GLUCOSE 108 mg/dL (70-99)
[2016-10-23 23:58] LABS: ANION GAP 13 MEQ/L (2-14); TOTAL BILIRUBIN 0.5 mg/dL (0.0-1.0)
[2016-10-24] VITALS (12 sets, daily range): BP systolic 118–154; BP diastolic 62–82
[2016-10-24] LABS: ALKALINE PHOSPHATASE 99 IU/L (3-129); GFR ESTIMATE (CALCULATED) 40 mL/min/
[2016-10-24 00:01] LABS: UREA NITROGEN (BUN) 52 mg/dL (9-23)
[2016-10-24 00:08] LABS: TROP-I INTERPRETATION NEGATIVE; TROPONIN-I 0.02 ng/mL (0.0-0.30)
[2016-10-24] MEDS ORDERED: DILAUDID2 MG PO ×3 (00:51→00:52)
[2016-10-24] MEDS ORDERED: LISINOPRIL40 MG PO (00:51)
[2016-10-24] MEDS ORDERED: COLACE100 MG PO (00:54)
[2016-10-24] MEDS ORDERED: METFORMIN HCL1000 M3 PO (00:55)
[2016-10-24] MEDS ORDERED: OMEPRAZOLE40 M1 PO (00:55)
[2016-10-24] MEDS ORDERED: NYSTOP60 GM TP (00:56)
[2016-10-24 03:26] LABS: BASE EXCESS 12.3 mEq/L (-3 to +3); BICARBONATE 38.3 mEq/L (22-26); CARBOXY HGB 2.6 % (0-5); COMMENTS - BLOOD GASES A+C+; METHEMOGLOBIN 0.5 % (0-1.5); O2 FLOW 4 L/MIN; PCO2 59 mm Hg (35-45); PO2 65 mm Hg (80-100); SITE RR; pH 7.42 (7.35-7.45)
[2016-10-24 03:27] LABS: DEVICE NC; TOTAL RESP RATE 18 resp/min
[2016-10-24 05:43] LABS: ADD MIUA? NO; BILIRUBIN NEGATIVE; BLOOD NEGATIVE; COLOR STRAW ((YELLOW)); GLUCOSE (STRIP) NEGATIVE; KETONES NEGATIVE; LEUKOCYTES NEGATIVE; NITRITE NEGATIVE; PROTEIN (STRIP) NEGATIVE; SPECIFIC GRAVITY 1.009 (1.000-1.030); UCUL ADDED? NO; UROBILINOGEN 0.2 MG/DL (0.2-1.0)
[2016-10-24 10:10] LABS: INTERNAL CONTROL VALID? YES
[2016-10-24 10:40] LABS: BASOPHIL COUNT 0.1 K/uL (0-0.1); EOSINOPHIL (%) 2.2 % (0-5); EOSINOPHIL COUNT 0.3 K/uL (0-0.3); HEMATOCRIT 29.1 % (36.0-46.0); IMMATURE GRANULOCYTE (%) 0.7 % (0.0-0.7); IMMATURE GRANULOCYTE COUNT 0.1 K/uL; INSTRUMENT ABS NEUTROPHIL CT 12.3 K/uL; LYMPHOCYTE COUNT 0.8 K/uL (1.0-2.8); MCH 19.4 PG (29.0-34.0); MCHC 26.8 G/DL (30.0-36.0); MCV 72.4 FL (83-99); MEAN PLAT.VOLUME 10.4 uM^3 (9.5-12.4); MONOCYTE (%) 6.9 % (3-12); NEUTROPHIL (%) 84.2 % (45-76); NEUTROPHIL COUNT 12.3 K/uL (1.8-6.4); NRBC (%) 0.3 /100 WBC (0-0); PLATELET COUNT 246 K/uL (156-360); RBC DIS.WIDTH-CV 23.1 % (11.8-14.6); RBC DIS.WIDTH-SD 58.8 % (39-53); RED BLOOD COUNT 4.02 M/uL (3.80-5.20); WHITE BLOOD COUNT 14.6 K/uL (4.1-10.2)
[2016-10-24 14:39] LABS: ANION GAP 10 MEQ/L (2-14); CHLORIDE 102 MEQ/L (99-109); GFR ESTIMATE (CALCULATED) 48 mL/min/; GLUCOSE 120 mg/dL (70-99); POTASSIUM 3.2 MEQ/L (3.7-5.4); SAMPLE HEMOLYSIS CHECK 0; SAMPLE ICTERIC CHECK 0; SAMPLE LIPEMIA CHECK 0; SODIUM 146 MEQ/L (136-147); UREA NITROGEN (BUN) 38 mg/dL (9-23)
[2016-10-24 17:07] LABS: HEMATOCRIT 29.9 % (36.0-46.0); MCV 73.1 FL (83-99)
[2016-10-25] VITALS (8 sets, daily range): BP systolic 112–139; BP diastolic 57–87
[2016-10-25 00:58] LABS: HEMATOCRIT 31.9 % (36.0-46.0); MCV 73.7 FL (83-99)
[2016-10-25 06:57] LABS: BASOPHIL COUNT 0.1 K/uL (0-0.1); EOSINOPHIL (%) 2.1 % (0-5); EOSINOPHIL COUNT 0.3 K/uL (0-0.3); HEMATOCRIT 31.8 % (36.0-46.0); IMMATURE GRANULOCYTE (%) 0.8 % (0.0-0.7); IMMATURE GRANULOCYTE COUNT 0.1 K/uL; LYMPHOCYTE COUNT 0.7 K/uL (1.0-2.8); MEAN PLAT.VOLUME 11.3 uM^3 (9.5-12.4); MONOCYTE (%) 5.8 % (3-12); MONOCYTE COUNT 0.9 K/uL (0-0.8); NEUTROPHIL (%) 86.3 % (45-76); NRBC (%) 0.3 /100 WBC (0-0); PLATELET COUNT 250 K/uL (156-360); RBC DIS.WIDTH-CV 23.4 % (11.8-14.6); RBC DIS.WIDTH-SD 60.6 % (39-53); WHITE BLOOD COUNT 15.1 K/uL (4.1-10.2)
[2016-10-25 07:18] LABS: ANION GAP 7 MEQ/L (2-14); CHLORIDE 103 MEQ/L (99-109); GFR ESTIMATE (CALCULATED) 48 mL/min/; GLUCOSE 93 mg/dL (70-99); POTASSIUM 3.6 MEQ/L (3.7-5.4); SAMPLE HEMOLYSIS CHECK 0; SAMPLE ICTERIC CHECK 0; SAMPLE LIPEMIA CHECK 0; SODIUM 147 MEQ/L (136-147); UREA NITROGEN (BUN) 32 mg/dL (9-23)
[2016-10-26] VITALS: BP 125/85
[2016-10-26 03:31] VITALS: BP 131/69
[2016-10-26 08:52] LABS: HEMATOCRIT 34.5 % (36.0-46.0); MCH 19.3 PG (29.0-34.0); MCHC 25.8 G/DL (30.0-36.0); MCV 74.8 FL (83-99); NRBC (%) 0.2 /100 WBC (0-0); PLATELET COUNT 242 K/uL (156-360); RBC DIS.WIDTH-CV 23.9 % (11.8-14.6); RBC DIS.WIDTH-SD 62.4 % (39-53); RED BLOOD COUNT 4.61 M/uL (3.80-5.20)
[2016-10-26 09:00] VITALS: BP 136/87
[2016-10-26 09:10] LABS: ALKALINE PHOSPHATASE 82 IU/L (3-129); ANION GAP 9 MEQ/L (2-14); CHLORIDE 104 MEQ/L (99-109); GFR ESTIMATE (CALCULATED) 59 mL/min/; GLUCOSE 103 mg/dL (70-99); MAGNESIUM 2.7 mg/dl (1.3-2.7); POTASSIUM 3.8 MEQ/L (3.7-5.4); SAMPLE HEMOLYSIS CHECK 0; SAMPLE ICTERIC CHECK 0; SAMPLE LIPEMIA CHECK 0; SODIUM 146 MEQ/L (136-147); TOTAL BILIRUBIN 0.4 MG/DL (0.0-1.0); UREA NITROGEN (BUN) 30 mg/dL (9-23)
[2016-10-26 12:30] VITALS: BP 128/73
[2016-10-26 14:12] LABS: INTACT PARATHYROID HORMONE 142 pg/mL (10-69)
[2016-10-26 18:06] VITALS: BP 178/84
[2016-10-26 18:30] LABS: POINT-OF-CARE METER ID UU14174216
[2016-10-26 22:53] VITALS: BP 132/79
[2016-10-27 05:32] VITALS: BP 140/86
[2016-10-27 06:11] LABS: BASOPHIL COUNT 0.1 K/uL (0-0.1); EOSINOPHIL (%) 1.4 % (0-5); EOSINOPHIL COUNT 0.2 K/uL (0-0.3); HEMATOCRIT 30.6 % (36.0-46.0); IMMATURE GRANULOCYTE COUNT 0.1 K/uL; INSTRUMENT ABS NEUTROPHIL CT 10.6 K/uL; LYMPHOCYTE COUNT 0.8 K/uL (1.0-2.8); MCH 19.7 PG (29.0-34.0); MCHC 26.1 G/DL (30.0-36.0); MCV 75.2 FL (83-99); MEAN PLAT.VOLUME 10.9 uM^3 (9.5-12.4); MONOCYTE (%) 6.1 % (3-12); MONOCYTE COUNT 0.8 K/uL (0-0.8); NEUTROPHIL (%) 84.4 % (45-76); NEUTROPHIL COUNT 10.6 K/uL (1.8-6.4); NRBC (%) 0.2 /100 WBC (0-0); PLATELET COUNT 230 K/uL (156-360); RBC DIS.WIDTH-CV 24.6 % (11.8-14.6); RBC DIS.WIDTH-SD 65.1 % (39-53); RED BLOOD COUNT 4.07 M/uL (3.80-5.20); WHITE BLOOD COUNT 12.5 K/uL (4.1-10.2)
[2016-10-27 06:36] LABS: ANION GAP 6 MEQ/L (2-14); CHLORIDE 103 MEQ/L (99-109); GFR ESTIMATE (CALCULATED) 53 mL/min/; GLUCOSE 98 mg/dL (70-99); POTASSIUM 4.1 MEQ/L (3.7-5.4); SAMPLE HEMOLYSIS CHECK 0; SAMPLE ICTERIC CHECK 0; SAMPLE LIPEMIA CHECK 0; SODIUM 143 MEQ/L (136-147); UREA NITROGEN (BUN) 31 mg/dL (9-23)
[2016-10-27 08:38] VITALS: BP 163/100
[2016-10-27 11:33] VITALS: BP 137/81
[2016-10-27 16:02] VITALS: BP 142/77
[2016-10-27 20:00] VITALS: BP 136/71
[2016-10-27 20:55] LABS: POINT-OF-CARE METER ID UU14188625
[2016-10-27 23:41] VITALS: BP 145/75
[2016-10-28 03:54] VITALS: BP 165/87
[2016-10-28 06:29] LABS: EOSINOPHIL (%) 1.6 % (0-5); EOSINOPHIL COUNT 0.2 K/uL (0-0.3); HEMATOCRIT 32.2 % (36.0-46.0); IMMATURE GRANULOCYTE (%) 0.7 % (0.0-0.7); IMMATURE GRANULOCYTE COUNT 0.1 K/uL; INSTRUMENT ABS NEUTROPHIL CT 10.1 K/uL; LYMPHOCYTE COUNT 0.9 K/uL (1.0-2.8); MCH 19.4 PG (29.0-34.0); MCHC 25.8 G/DL (30.0-36.0); MCV 75.4 FL (83-99); MEAN PLAT.VOLUME 11.1 uM^3 (9.5-12.4); MONOCYTE (%) 7.3 % (3-12); MONOCYTE COUNT 0.9 K/uL (0-0.8); NEUTROPHIL (%) 82.9 % (45-76); NEUTROPHIL COUNT 10.1 K/uL (1.8-6.4); NRBC (%) 0.2 /100 WBC (0-0); PLATELET COUNT 239 K/uL (156-360); RBC DIS.WIDTH-CV 24.6 % (11.8-14.6); RBC DIS.WIDTH-SD 66.4 % (39-53); RED BLOOD COUNT 4.27 M/uL (3.80-5.20); WHITE BLOOD COUNT 12.2 K/uL (4.1-10.2)
[2016-10-28 07:55] LABS: ALKALINE PHOSPHATASE 80 IU/L (3-129); ANION GAP 4 MEQ/L (2-14); CHLORIDE 104 MEQ/L (99-109); GFR ESTIMATE (CALCULATED) > 59 mL/min/; GLUCOSE 106 mg/dL (70-99); POTASSIUM 4.9 MEQ/L (3.7-5.4); SAMPLE HEMOLYSIS CHECK 0; SAMPLE ICTERIC CHECK 0; SAMPLE LIPEMIA CHECK 0; SODIUM 142 MEQ/L (136-147); UREA NITROGEN (BUN) 29 mg/dL (9-23)
[2016-10-28 07:58] LABS: TOTAL BILIRUBIN 0.3 MG/DL (0.0-1.0)
[2016-10-28 08:43] VITALS: BP 156/87
[2016-10-28 11:33] VITALS: BP 140/80
[2016-10-28 15:57] VITALS: BP 160/99
[2016-10-28 23:36] VITALS: BP 152/81
[2016-10-29 07:11] LABS: HEMATOCRIT 36.7 % (36.0-46.0); MCH 19.6 PG (29.0-34.0); MCHC 26.2 G/DL (30.0-36.0); MCV 74.9 FL (83-99); NRBC (%) 0.2 /100 WBC (0-0); RBC DIS.WIDTH-CV 25.4 % (11.8-14.6); RBC DIS.WIDTH-SD 66.5 % (39-53); WHITE BLOOD COUNT 16.6 K/uL (4.1-10.2)
[2016-10-29 07:44] LABS: POINT-OF-CARE METER ID UU14174225
[2016-10-29 07:47] VITALS: BP 134/74
[2016-10-29 08:14] LABS: HEMATOLOGY COMMENT 1 SMEAR COMPATIBLE; PLAT.SUFFICIENCY ADEQUATE; PLATELET COUNT 297 K/uL (156-360)
[2016-10-29] MEDS ORDERED: FERROUS SULFAT325 MG PO (09:54)
[2016-10-29] MEDS ORDERED: BUSPAR10 MG PO (09:56)
[2016-10-29] MEDS ORDERED: AUGMENTIN875 MG PO (10:01)
[2016-10-29 12:09] LABS: POINT-OF-CARE METER ID UU14174225
[2016-10-30] MEDS ORDERED: ZESTRIL40 MG PO (18:26)
== END 2016-10-29 13:51 | disposition home health service (06) | DRG 190 ==
LOC: EME → EDBD 22:39 → EME 22:39 → 5SOUTH 10-24 01:32 → EDOF 10-24 01:32 → 4EAST 10-24 01:32 → ENRESERV 10-24 01:33 → CANRESERV 10-24 02:31 → EDOF 10-24 04:25 → ENRESERV 10-24 04:27 → 4EAST 10-24 05:28 → ENRESERV 10-26 19:15 → 5SOUTH 10-26 22:23
PROVIDERS: Emergency Medicine; Hospitalist
PROC: 30233N1 Transfusion of Nonautologous Red Blood Cells into Peripheral Vein, Percutaneous Approach (ICD-10-PCS; principal; 2016-10-24)
DX: J44.0 Chronic obstructive pulmonary disease with (acute) lower respiratory infection (principal); J18.9 Pneumonia, unspecified organism; J44.1 Chronic obstructive pulmonary disease with (acute) exacerbation; J96.21 Acute and chronic respiratory failure with hypoxia; N17.9 Acute kidney failure, unspecified; N18.3 Chronic kidney disease, stage 3 (moderate); Z68.41 Body mass index [BMI] 40.0-44.9, adult; I48.2 Chronic atrial fibrillation; E11.40 Type 2 diabetes mellitus with diabetic neuropathy, unspecified; I13.0 Hypertensive heart and chronic kidney disease with heart failure and stage 1 through stage 4 chronic kidney disease, or unspecified chronic kidney disease; L03.115 Cellulitis of right lower limb; I83.028 Varicose veins of left lower extremity with ulcer other part of lower leg; I83.019 Varicose veins of right lower extremity with ulcer of unspecified site; L97.819 Non-pressure chronic ulcer of other part of right lower leg with unspecified severity; L97.829 Non-pressure chronic ulcer of other part of left lower leg with unspecified severity; L03.116 Cellulitis of left lower limb; E66.01 Morbid (severe) obesity due to excess calories; E83.52 Hypercalcemia; S43.034A Inferior dislocation of right humerus, initial encounter; I87.2 Venous insufficiency (chronic) (peripheral); I50.9 Heart failure, unspecified; I87.8 Other specified disorders of veins; I25.10 Atherosclerotic heart disease of native coronary artery without angina pectoris; D50.9 Iron deficiency anemia, unspecified; F33.9 Major depressive disorder, recurrent, unspecified; I12.9 Hypertensive chronic kidney disease with stage 1 through stage 4 chronic kidney disease, or unspecified chronic kidney disease; N18.9 Chronic kidney disease, unspecified; F41.1 Generalized anxiety disorder; E78.5 Hyperlipidemia, unspecified; D35.01 Benign neoplasm of right adrenal gland; F17.200 Nicotine dependence, unspecified, uncomplicated; Z96.651 Presence of right artificial knee joint; Z85.820 Personal history of malignant melanoma of skin; Z99.81 Dependence on supplemental oxygen; Z79.4 Long term (current) use of insulin; Z79.01 Long term (current) use of anticoagulants; Z80.3 Family history of malignant neoplasm of breast; Z80.8 Family history of malignant neoplasm of other organs or systems; Z82.49 Family history of ischemic heart disease and other diseases of the circulatory system; Z82.5 Family history of asthma and other chronic lower respiratory diseases
CPT/HCPCS: 36600; 71020; 71250; 74176; 76700; 80048; 80053; 81003; 82272; 82803; 82948; 83605; 83735; 83880; 83970; 84484; 85014; 85018; 85025; 85027; 86850; 86900; 86901; 86920; 87040; 87070; 87205; 87449; 93005; 94640; 94640 76; 94760; 94799; 97530 GO; 97530 GP; 99202; 99281; 99285; C9113; J0456; J0696; J1170; J1815; J1940; J2270; J3370; J7050; J7512; P9016; S0028

== ENCOUNTER 2016-10-30 16:38 | Emergency (ER) | payer OTHER ==
[~2016-10-30] VITALS: Ht 152.4 cm; Wt 103.1 kg
[~2016-10-30 16:38] MED LIST changes: +AUGMENTIN875 MG PO; +BUSPAR10 MG PO; +COLACE100 MG PO; +FERROUS SULFAT325 MG PO; +METFORMIN HCL1000 M3 PO
[2016-10-30 17:14] LABS: EOSINOPHIL (%) 0.6 % (0-5); EOSINOPHIL COUNT 0.1 K/uL (0-0.3); HEMATOCRIT 32.1 % (36.0-46.0); IMMATURE GRANULOCYTE (%) 1.1 % (0.0-0.7); IMMATURE GRANULOCYTE COUNT 0.1 K/uL; INSTRUMENT ABS NEUTROPHIL CT 10.6 K/uL; MCH 19.3 PG (29.0-34.0); MCHC 25.9 G/DL (30.0-36.0); MCV 74.7 FL (83-99); MEAN PLAT.VOLUME 10.2 uM^3 (9.5-12.4); MONOCYTE (%) 7.8 % (3-12); NEUTROPHIL (%) 82.7 % (45-76); NEUTROPHIL COUNT 10.6 K/uL (1.8-6.4); PLATELET COUNT 260 K/uL (156-360); RBC DIS.WIDTH-CV 25.1 % (11.8-14.6); RBC DIS.WIDTH-SD 65.1 % (39-53); WHITE BLOOD COUNT 12.8 K/uL (4.1-10.2)
[2016-10-30 17:18] LABS: CHLORIDE 105 mEq/L (99-109); SODIUM 145 mEq/L (136-147)
[2016-10-30 17:20] LABS: GLUCOSE 105 mg/dL (70-99)
[2016-10-30 17:21] LABS: ANION GAP 8 MEQ/L (2-14)
[2016-10-30 17:24] LABS: GFR ESTIMATE (CALCULATED) 59 mL/min/; UREA NITROGEN (BUN) 40 mg/dL (9-23)
[2016-10-30 17:30] LABS: POTASSIUM 3.7 mEq/L (3.7-5.4); TROP-I INTERPRETATION NEGATIVE; TROPONIN-I 0.01 ng/mL (0.0-0.30)
[2016-10-30] MEDS ORDERED: ZESTRIL40 MG PO (18:26)
[2016-10-30 18:40] VITALS: BP 110/54
== END 2016-10-30 18:40 ==
LOC: EME 16:38
PROVIDERS: Emergency Medicine
DX: R05 Cough (principal); R29.6 Repeated falls; R53.1 Weakness; I48.91 Unspecified atrial fibrillation; E78.5 Hyperlipidemia, unspecified; E11.22 Type 2 diabetes mellitus with diabetic chronic kidney disease; N18.9 Chronic kidney disease, unspecified; Z79.84 Long term (current) use of oral hypoglycemic drugs; Z87.01 Personal history of pneumonia (recurrent); Z99.81 Dependence on supplemental oxygen; Z72.0 Tobacco use
CPT/HCPCS: 71010; 80048; 83605; 83880; 84484; 85025; 93005